=== PATIENT | female | born 1965 | race Caucasian/White ===

== ENCOUNTER → 2018-07-20 10:17 | Outpatient (CLI) | payer OTHER, SELFPAY ==
[2018-07-20 12:51] LABS: Pathologist Comment May follow
[2018-07-20 13:25] LABS: RBC /Synovial Fluid 0.004 10^6/uL (0); Synovial Fld Mononuclear WBC % 69.8 %; Synovial Fld Polynuclear WBC % 30.2 %
[2018-07-20 13:34] LABS: AUTO B FLUID DILUENT BKGD CT WBC <0.1 RBC <0.01 (W<.1,R<.01)
[2018-07-20 13:35] LABS: Source- Body Fluid SYNOVIAL
[2018-07-20 13:36] LABS: Appearance /Synovial Fluid Sl Cl (CLEAR); Color / Synovial Fluid Yellow (Pale Yellow); Source / Synovial Fluid LEFT KNEE
[2018-07-20 14:34] LABS: Lymph 12 %; Monocyte /Synovial Fluid 57 %; Neutrophil 31 % (0-25)
[2018-07-20 14:35] LABS: Body Fluid QC Type(s) BF2Q,BF3Q
[2018-07-21 12:31] LABS: Pathologist Review Reviewed
== END ==
PROVIDERS: Visit Provider Orthopaedic Surgery
DX: M25.562 Pain in left knee (principal); M25.462 Effusion, left knee; M23.307 Other meniscus derangements, unspecified meniscus, left knee
CPT/HCPCS: 73564; 87070; 87075; 87205; 89050; 89051; 89060